=== PATIENT | male | born 1955 | race Caucasian/White ===

== ENCOUNTER 2017-02-12 10:03 | Inpatient (IN) | payer BC ==
[~2017-02-12] VITALS: Ht 167.6 cm; Wt 88.6 kg
[~2017-02-12 10:03] MED LIST: ASPIRIN 81 MG E81 MG PO; BYSTOLIC5 MG PO
[2017-02-12 10:45] LABS: BASOPHILS 0.2 % (0.0-2.0); EOSINOPHILS 1.3 % (0-7); HEMATOCRIT 48.7 % (42.0-54.0); HEMOGLOBIN 16.7 g/dL (13.5-17.5); IMMATURE GRANULOCYTES 0.8 % (0-5); LYMPHOCYTES 15.5 % (15-50); MCH 31.7 pg (26.0-34.0); MCHC 34.3 g/dL (31.0-37.0); MCV 92.6 fL (80.0-100.0); MEAN PLATELET VOLUME 9.8 fL (7.4-10.4); MONOCYTES 6.8 % (2-11); NEUTROPHILS 75.4 % (40-80); PLATELET COUNT 204 10x3/uL (130-400); RBC 5.26 10x6/uL (4.20-6.10); RDW 12.7 % (11.5-14.5); WBC 10.4 10x3/uL (4.8-10.8)
[2017-02-12 11:01] LABS: ALBUMIN 3.8 g/dL (3.4-5.0); ALKALINE PHOSPHATASE 62 U/L (46-116); ALT (SGPT) 33 U/L (10-68); BILIRUBIN - TOTAL 0.44 mg/dL (0.2-1.3); CALC OSMOLALITY 278 mosm/kg (275-300); CALCIUM 9.1 mg/dL (8.5-10.1); CHLORIDE - SERUM 105 mmol/L (98-107); CREATININE - SERUM 0.9 mg/dL (0.6-1.3); GLUCOSE 115 mg/dL (74-106); POTASSIUM - SERUM 4.7 mmol/L (3.5-5.1); SODIUM 138 mmol/L (136-145); UREA NITROGEN 18 mg/dL (7-18); eGFR NON AFRICAN AMERICAN > 90 mL/min (90-120)
[2017-02-12 11:20] LABS: PROTEIN - SERUM 7.5 g/dL (6.4-8.2); TROPONIN-I < 0.017 ng/mL (0.000-0.060)
--- NOTE | 2017-02-12 13:55 | NUR ---
PATIENT DENIES TAKING ANY OTHER MEDICATION BESIDES ASPRIN ON A REGULAR BASIS.
--- NOTE | 2017-02-12 14:00 | NUR ---
RECEIVED TO ROOM 2208 FROM RECOVERY ROOM VIA BED. RIGHT CHEST TUBE TO SUCTION. IV TO LEFT AC PATENT WITH NS INFUSING @ 100 CC/HR VIA PUMP. FAMILY AT BEDSIDE. CALL LIGHT IN REACH.
--- NOTE | 2017-02-12 15:42 | NUR ---
NEW BAG OF NS INITIATED. FAMILY IN ROOM. CALL LIGHT IN REACH.
--- NOTE | 2017-02-12 16:50 | NUR ---
STATES PAIN IS A 0 AT THIS TIME. CALL LIGHT IN REACH.
--- NOTE | 2017-02-12 18:13 | NUR ---
NO CHANGES IN INITIAL ASSESSMENT. CALL LIGHT IN REACH. REFUSES SCDs. CALL LIGHT IN REACH. WILL CONTINUE WITH PLAN OF CARE.
--- NOTE | 2017-02-12 19:00 | NUR ---
PATIENT IN BED VISITING WITH FAMILY. HOB 20 DEGREES. AAOX4. RR EVEN AND UNLABORED. O2 @ 2L VIA NC. 0 S/S OF DISTRESS. STATES PAIN IS A 5/10. IV TO LEFT AC PATENT WITH NO REDNESS OR SWELLING. CHEST TUBE TO RIGHT SIDE WITH DRESSING CDI. SRX2. BED LOW. CALL LIGHT WITHIN REACH.
[2017-02-12 19:31] VITALS: BP 147/81; Ht 167.6 cm; Wt 88.6 kg
[2017-02-12 20:00] VITALS: BP 116/63
--- NOTE | 2017-02-12 21:30 | NUR ---
ASSESSMENT COMPLETE. NIGHTTIME MEDS GIVEN. STATES PAIN IS DOWN TO A 2/10. DENIES NEEDS AT THIS TIME.
[2017-02-13] VITALS: BP 131/62
--- NOTE | 2017-02-13 00:11 | NUR ---
PATIENT SLEEPING WITH NO DISTRESS NOTED. AT BEDSIDE. CALL LIGHT WITHIN REACH.
--- NOTE | 2017-02-13 03:57 | NUR ---
BANDAGE AROUND CHEST TUBE LEAKING BLOOD. BANDAGE REMOVED. INSERTION SITE CLEANED WITH BETADINE. PETROLEUM GAUZE APPLIED. 4X4'S APPLIED AND PRESSURE TAPE APPLIED. WILL CONTINUE TO MONITOR.
[2017-02-13 04:00] VITALS: BP 118/62
[2017-02-13 04:46] LABS: BASOPHILS 0.2 % (0.0-2.0); EOSINOPHILS 2.7 % (0-7); HEMATOCRIT 44.2 % (42.0-54.0); HEMOGLOBIN 14.8 g/dL (13.5-17.5); IMMATURE GRANULOCYTES 0.6 % (0-5); MCH 31.4 pg (26.0-34.0); MCHC 33.5 g/dL (31.0-37.0); MCV 93.6 fL (80.0-100.0); MEAN PLATELET VOLUME 9.7 fL (7.4-10.4); MONOCYTES 8.6 % (2-11); NEUTROPHILS 62.9 % (40-80); PLATELET COUNT 180 10x3/uL (130-400); RBC 4.72 10x6/uL (4.20-6.10); RDW 12.6 % (11.5-14.5); WBC 8.7 10x3/uL (4.8-10.8)
[2017-02-13 04:58] LABS: CALC OSMOLALITY 277 mosm/kg (275-300); CARBON DIOXIDE 23.8 mmol/L (21.0-32.0); CHLORIDE - SERUM 105 mmol/L (98-107); CREATININE - SERUM 0.9 mg/dL (0.6-1.3); GLUCOSE 121 mg/dL (74-106); PHOSPHOROUS 2.8 mg/dL (2.5-4.9); POTASSIUM - SERUM 4.3 mmol/L (3.5-5.1); SODIUM 138 mmol/L (136-145); UREA NITROGEN 14 mg/dL (7-18); eGFR NON AFRICAN AMERICAN > 90 mL/min (90-120)
[2017-02-13 05:08] LABS: MAGNESIUM - SERUM 4.3 mg/dL (1.8-2.4)
--- NOTE | 2017-02-13 07:15 | NUR ---
REPORT RECEIVED FROM CLINICAL SERVICES DIRECTOR NURSE. CALL LIGHT IN REACH.
--- NOTE | 2017-02-13 07:52 | CN ---
PATIENT NAME:NIKKI CONTRERAS MEDICAL RECORD: [id number] : 53 LOCATION:D.MS Cho2208 ADMIT DATE: 02/12/17 ACCOUNT: [id number] CONSULTING PHYSICIAN: CLAIRE UNDERWOOD DO REFERRING PHYSICIAN: CLAIRE SANCHEZ MD DATE OF CONSULTATION: 02/12/2017 HISTORY OF PRESENT ILLNESS: A 61-year-old male consulted for medical management. The patient has a history of coronary artery disease, also history of nicotine dependence. Current medication is aspirin, had acute onset of chest pain early this morning. Daughter called EMS, he was brought in. Chest x-ray revealed a large right pneumothorax with almost complete collapse of the right lung. General surgery, Dr. Sanchez called. He was taken for chest tube placement and had a chest tube placed with good results. No present complaints. Consults as above. The patient relates a history of approximately 2 weeks prior significant fall landing on his right lateral chest wall, but did not seek medical treatment at that time. ALLERGIES: No known drug allergies. SOCIAL HISTORY: Everyday smoker, . REVIEW OF SYSTEMS: GENERAL: No acute change in weight or appetite. HEENT: No cephalgia, visual changes, tinnitus, epistaxis or dysphagia. CARDIOVASCULAR: Presented with right-sided chest pain, present resolution of symptoms. PULMONARY: As above, presently not short of breath. The patient also has a history of significant obstructive sleep apnea, is dependent on CPAP at night. GASTROINTESTINAL: Denies hematemesis, hematochezia or melena. GENITOURINARY: Denies dysuria. MUSCULOSKELETAL: No acute changes other than the acute right-sided chest pain with the right spontaneous pneumothorax. PHYSICAL EXAMINATION: VITAL SIGNS: Temperature 97.9, blood pressure 147/81, heart rate 88, respirations 20. GENERAL: Alert and oriented, no present distress. Family is present. HEENT: Normocephalic, atraumatic. Eyes: Pupils are equally round and reactive to light and accommodation. Extraocular muscles intact. Conjunctivae not injected. Ears: Canals patent, TMs are intact. Nose: Nares patent without drainage. Throat: No erythema, no exudates. NECK: Supple. No lymphadenopathy, no JVD. HEART: Regular rate and rhythm. No S3, S4, no rub. LUNGS: Presently clear, chest tube in place right lateral. ABDOMEN: Soft, nontender. Bowel sounds all 4 quadrants. EXTREMITIES: Present times 4, no edema. NEUROLOGIC: No focal deficits. SKIN: Warm and dry. No rash. ASSESSMENT AND PLAN: 1. Spontaneous pneumothorax, right chest wall, right lung with history of traumatic injury 2 weeks prior. We will obtain CT of the chest to evaluate for occult rib fracture. 2. Nicotine dependence. Counseled on smoking cessation, has failed outpatient CONSULT REPORT [id number] NIKKI CONTRERAS. 3. Coronary artery disease. EKG reviewed, no significant abnormalities. Presently, asymptomatic. 4. Pain management with chest tube placement. We will place on bowel regimen with Colace 100 mg q.h.s. p.r.n., milk of mag, supportive care. TRANSINT:[id number] Voice Confirmation ID: [id number] DOCUMENT ID: [id number] CLAIRE UNDERWOOD DO at 0752 CC: [id number] DICTATION DATE: 02/12/172004 RESISTOR TESTER: 02/13/17 0500 ADM IN [facility] [address] [place] [address]
[2017-02-13 08:15] VITALS: BP 122/64
--- NOTE | 2017-02-13 09:24 | NUR ---
IN CT SCAN AT THIS TIME.
--- NOTE | 2017-02-13 09:50 | NUR ---
BACK IN ROOM. ASSESSMENT COMPLETED. AM MEDS ADMINISTERED EXCEPT FOR PEPCID AND NICOTINE PATCH D/T REFUSAL. IN ROOM. STILL REFUSES SCDs. CALL LIGHT IN REACH. WILL CONTINUE WITH PLAN OF CARE.
--- NOTE | 2017-02-13 10:11 | NUR ---
Patient Name: NIKKI CONTRERAS Admission Status: ER Accout number: [id number] Admission Date: 02-12-2017 : 1955 Admission Diagnosis: Attending: ELIF Current LOS: 1 Anticipated DC Date: 02-17-2017 Planned Disposition: Home or Self Care Primary Insurance: [employer] O Discharge Planning Comments: CM MET WITH PATIENT AND SPOUSE (KAR) REGARDING D/C NEEDS AND PLANS. STATED SHE WILL DRIVE PATIENT HOME AT DISCHARGE. PATIENT STATED THEY HAVE 5 STEPS WITH RAILS TO ENTER HOME AND NO STAIRS INSIDE. PATIENT IS INDEPENDENT WITH HIS CARE AND HAS NO DME AT HOME. PATIENTS PCP IS DR. UNDERWOOD AND USES [facility]. PATIENT DENIES THE NEED FOR HOME HEALTH AT THIS TIME. CM WILL CONTINUE TO FOLLOW PATIENT WITH D/C NEEDS AND PLANS. PCP DR. UNDERWOOD [facility]- [phone] KAR - [phone] Gas Main Fitter Helper: Crystal Ram Is the patient Alert and Oriented? Yes 0 * How many steps to enter\exit or inside your home? 5 W/RAILS 0 * PCP DR. UNDERWOOD 0 * Pharmacy [facility] 0 * Preadmission Environment Home with Family 0 * ADLs Independent 0 * Equipment None 0 * List name and contact numbers for known caregivers / representatives who currently or will assist patient after discharge: KAR () [phone] 0 * Community resources currently utilized None 0 * Additional services required to return to the preadmission environment? Yes 0 * Can the patient safely return to the preadmission environment? Yes 0 * Has this patient been hospitalized within the prior 30 days at any hospital? No 0 Grand Total: 0
[2017-02-13 12:31] VITALS: BP 112/50
--- NOTE | 2017-02-13 14:06 | NUR ---
QUIET IN ROOM AT PRESENT DENIES ANY NEEDS AT THIS TIME.
--- NOTE | 2017-02-13 14:51 | NUR ---
AFTERNOON MEDS ADMINISTERED. FAMILY IN ROOM. CALL LIGHT IN REACH.
[2017-02-13 16:02] VITALS: BP 117/50
--- NOTE | 2017-02-13 16:05 | NUR ---
SPECIMEN CUP TAKEN IN ROOM FOR RESPIRATORY CULTTURE.
--- NOTE | 2017-02-13 18:50 | NUR ---
NO CHANGES IN INITIAL ASSESSMENT. STILL REFUSES PLEXI-PULSES. CALL LIGHT IN REACH. FAMILY IN ROOM. WILL CONTINUE WITH PLAN OF CARE.
--- NOTE | 2017-02-13 19:00 | NUR ---
PATIENT IN BED WATCHING TV. HOB 40 DEGREES. AAOX4. RR EVEN AND UNLABORED. O2 @ 2L VIA NC. 0 S/S OF DISTRESS. DENIES PAIN AT THIS TIME. IV TO LEFT AC PATENT WITH NO REDNESS OR SWELLING. CHEST TUBE TO RIGHT SIDE WITH DRESSING CDI. AT BEDSIDE. SRX2. BED LOW. CALL LIGHT WITHIN REACH.
[2017-02-13 20:00] VITALS: BP 118/51
--- NOTE | 2017-02-13 22:00 | NUR ---
ASSESSMENT COMPLETE. NIGHTTIME MEDS GIVEN. NO OTHER NEEDS AT THIS TIME.
[2017-02-14] VITALS: BP 107/52
--- NOTE | 2017-02-14 00:30 | NUR ---
DRESSING TO CHEST TUBE LEAKING. REDRESSED WITH PETROLEUM GAUZE, DRAIN GAUZE, AND PRESSURE TAPE. LINENS AND GOWN CHANGED.
--- NOTE | 2017-02-14 02:42 | NUR ---
PATIENT SLEEPING WITH NO DISTRESS NOTED. AT BEDSIDE. CALL LIGHT WITHIN REACH.
[2017-02-14 04:00] VITALS: BP 121/58
[2017-02-14 04:23] LABS: BASOPHILS 0.1 % (0.0-2.0); EOSINOPHILS 4.9 % (0-7); HEMATOCRIT 42.4 % (42.0-54.0); HEMOGLOBIN 14.1 g/dL (13.5-17.5); IMMATURE GRANULOCYTES 0.6 % (0-5); MCH 30.9 pg (26.0-34.0); MCHC 33.3 g/dL (31.0-37.0); MCV 92.8 fL (80.0-100.0); MEAN PLATELET VOLUME 9.4 fL (7.4-10.4); MONOCYTES 7.9 % (2-11); NEUTROPHILS 60.5 % (40-80); PLATELET COUNT 156 10x3/uL (130-400); RBC 4.57 10x6/uL (4.20-6.10); RDW 12.6 % (11.5-14.5); WBC 6.9 10x3/uL (4.8-10.8)
[2017-02-14 04:33] LABS: CALC OSMOLALITY 280 mosm/kg (275-300); CALCIUM 8.2 mg/dL (8.5-10.1); CARBON DIOXIDE 27.2 mmol/L (21.0-32.0); CHLORIDE - SERUM 108 mmol/L (98-107); CREATININE - SERUM 0.8 mg/dL (0.6-1.3); GLUCOSE 108 mg/dL (74-106); POTASSIUM - SERUM 4.5 mmol/L (3.5-5.1); SODIUM 141 mmol/L (136-145); eGFR NON AFRICAN AMERICAN > 90 mL/min (90-120)
[2017-02-14 04:34] LABS: MAGNESIUM - SERUM 1.8 mg/dL (1.8-2.4); UREA NITROGEN 9 mg/dL (7-18)
--- NOTE | 2017-02-14 07:15 | NUR ---
REPORT RECEIVED FROM FRANCHISE SALES MANAGER NURSE. CALL LIGHT IN REACH.
[2017-02-14 08:09] VITALS: BP 150/72
--- NOTE | 2017-02-14 09:22 | NUR ---
PT REFUSED TO COME TO THE RADIOLOGY DEPARTMENT FOR A 2V CXR, CHANGED ORDER TO A 1V PORTABLE CXR. RELAYED THIS MESSAGE TO HIS RN.
--- NOTE | 2017-02-14 09:52 | NUR ---
ASSESSMENT COMPLETED. STILL REFUSES PEPCID, NICOTINE PATCH, AND SCDs. CALL LIGHT IN REACH. IN ROOM. WILL CONTINUE WITH PLAN OF CARE.
--- NOTE | 2017-02-14 11:43 | NUR ---
PT. AOX4 RESP. DEMINISHED, RIGHT CHEST TUBE TO 20CM SUCTION PRESENT AND FUNCTIONING PROPERLY. 18 GAUGE IV TO LEFT AC. BANDAGE TO LEFT SHOULDER CLEAN DRY AND INTACT. PT. DENIES NEEDS AT THIS TIME
[2017-02-14 12:12] VITALS: BP 133/63
--- NOTE | 2017-02-14 13:20 | NUR ---
NO NEEDS VOICED AT THIS TIME. CALL LIGHT IN REACH.
[2017-02-14 15:48] VITALS: BP 155/75
--- NOTE | 2017-02-14 17:53 | NUR ---
SUSI SINGH PO. CALL LIGHT IN REACH.
--- NOTE | 2017-02-14 18:42 | NUR ---
NO CHANGES IN INIITAL ASSESSMENT. STILL REFUSES SCDs. CALL LIGHT IN REACH. WILL CONTINUE WITH PLAN OF CARE.
--- NOTE | 2017-02-14 19:00 | NUR ---
PATIENT SUPINE IN BED. HOB 40 DEGREES. AAOX4. RR EVEN AND UNLABORED. 0 S/S OF DISTRESS. DENIES PAIN AT THIS TIME. O2 @ 1L VIA NC. IV TO LEFT AC PATENT WITH NO REDNESS OR SWELLING. CHEST TUBE TO RIGHT SIDE, H20 SEAL WITH DRESSING CDI. AT BEDSIDE. SRX1. BED LOW. CALL LIGHT WITHIN REACH.
[2017-02-14 20:00] VITALS: BP 154/81
[2017-02-15] VITALS: BP 152/57
[2017-02-15 04:00] VITALS: BP 152/62
--- NOTE | 2017-02-15 07:40 | NUR ---
PATIENT RECEIVED SITTING UP IN CHAIR AT BEDSIDE VISITING WITH FAMILY. RESPIRATIONS EVEN AND UNLABORED. DENIES PAIN AND OTHER NEEDS. CALL LIGHT IN REACH.
[2017-02-15 08:30] VITALS: BP 148/84
--- NOTE | 2017-02-15 09:16 | NUR ---
PATIENT ALERT IN BED. NO SIGNS OF DISTRESS NOTED. SCHEDULED MEDICATION ADMINSITERED. SIDE RAILS UP X2. BED IN LOW POSITION. CALL LIGHT IN REACH. FAMILY PRESENT.
[2017-02-15 12:54] VITALS: BP 169/88
--- NOTE | 2017-02-15 14:20 | NUR ---
SITTING UP IN CHAIR VISITING WITH FAMILY. NO SIGNS OF DISTRESS NOTED. DENIES NEEDS. CALL LIGHT IN REACH.
[2017-02-15 17:00] VITALS: BP 165/81
--- NOTE | 2017-02-15 18:00 | NUR ---
SITTING UP IN CHAIR ALERT. NO SIGNS OF DISTRESS NOTED. FAMILY PRESENT. CALL LIGHT IN REACH. DENIES NEEDS.
[2017-02-15 20:44] VITALS: BP 136/64
--- NOTE | 2017-02-15 22:00 | NUR ---
ASSESSMENT COMPLETE. NIGHTTIME MEDS GIVEN. DRESSING CHANGED TO CHEST TUBE.
--- NOTE | 2017-02-16 06:00 | NUR ---
COVERED DRESSING SO PATIENT COULD SHOWER. PATIENT NOW AMBULATING IN HALLWAY AND STATES THAT HE FEELS BETTER.
--- NOTE | 2017-02-16 07:25 | NUR ---
PATIENT RECEIVED SITTING UP IN CHAIR ALERT. NO SIGNS OF DISTRESS NOTED. PRESENT. CALL LIGHT IN REACH.
[2017-02-16 07:57] VITALS: BP 158/78
--- NOTE | 2017-02-16 08:08 | NUR ---
PATIENT IN BED TALKING WITH . THEY ARE BOTH VERY UPSET AND AGITATED THAT THE CHEST TUBE IS STILL IN AND THE DRTrinidad DID NOT GIVE THEM A REASON TO WHY. TALKED WITH THEM TO CALM THEM DOWN. PATIENT STATED IV IS REALLY BOTHERING HIM AND ASKED IF I WOULD TAKE IT OUT. CATHETER REMOVED WITH TIP INTACT. NO OTHER NEEDS AT THIS TIME.
--- NOTE | 2017-02-16 08:25 | NUR ---
SITTING UP IN CHAIR ALERT. NO SIGNS OF DISTRESS NOTED. SCHEDULED MEDICATION ADMINISTERED. CALL LIGHT IN REACH. FAMILY PRESENT.
--- NOTE | 2017-02-16 09:25 | NUR ---
DRESSING TO CHEST TUBE CHANGED. NO REDNESS, INFLAMMATION OR DRAINAGE NOTED TO SITE. WELL TOLERATED. DENIES NEEDS.
--- NOTE | 2017-02-16 11:10 | NUR ---
PATIENT UP AMBULATING IN HALLWAY WITHOUT ASSIST. NO SIGNS OF DISTRESS NOTED.
[2017-02-16 12:12] VITALS: BP 134/69
--- NOTE | 2017-02-16 14:36 | NUR ---
SITTING UP IN CHAIR VISIITING WITH FAMILY. SCHEDULED MEDICATION ADMINISTERED. DENIES NEEDS. CALL LIGHT IN REACH.
[2017-02-16 15:38] VITALS: BP 141/70
--- NOTE | 2017-02-16 17:55 | NUR ---
SITTING UP IN CHAIR ALERT. NO SIGNS OF DISTRESS NOTED. FAMILY PRESENT. CALL JG MORAN. DENIES NEEDS.
--- NOTE | 2017-02-16 19:25 | NUR ---
RECIEVED SHIFT REPORT. PT IS SITTING UP IN CHAIR. ALERT AND ORIENTED AND ABLE TO VERBALIZE NEEDS. NO IV ACCESS AT THIS TIME. PT IS AMBULATORY BUT WAS INSTRUCTED TO CALL FOR ANY ASSISTANCE NEEDED. PT DENIES ANY PAIN AT THIS TIME. CHEST TUBE TO RIGHT SIDE INTACT. SITE C/D/I. PT REFUSES SCD'S AT THIS TIME. NO NEEDS ARE VERBALIZED AT THIS TIME. AT BEDSIDE. WILL CONTINUE TO MONITOR. SIDE RAILS ARE UP X 2. BED IS IN LOWEST POSITION. CALL LIGHT IS WITHIN REACH.
[2017-02-16 20:00] VITALS: BP 142/72
--- NOTE | 2017-02-16 21:20 | NUR ---
SHIFT ASSESSMENT COMPLETED. NIGHT MEDS GIVEN WITH NO PROBLEMS. NO NEEDS ARE VOICED. WILL MONITOR. SIDE RAILS X 2. BED LOW. CALL LIGHT IN REACH.
[2017-02-17] VITALS: BP 113/56
[2017-02-17 04:00] VITALS: BP 144/66
[2017-02-17 05:06] LABS: BASOPHILS 0.4 % (0.0-2.0); EOSINOPHILS 5.5 % (0-7); HEMATOCRIT 43.9 % (42.0-54.0); HEMOGLOBIN 14.8 g/dL (13.5-17.5); IMMATURE GRANULOCYTES 0.8 % (0-5); LYMPHOCYTES 20.5 % (15-50); MCH 31.2 pg (26.0-34.0); MCHC 33.7 g/dL (31.0-37.0); MCV 92.4 fL (80.0-100.0); MEAN PLATELET VOLUME 9.4 fL (7.4-10.4); MONOCYTES 9.6 % (2-11); NEUTROPHILS 63.2 % (40-80); RBC 4.75 10x6/uL (4.20-6.10); RDW 12.7 % (11.5-14.5); WBC 8.3 10x3/uL (4.8-10.8)
[2017-02-17 05:10] LABS: PLATELET COUNT 189 10x3/uL (130-400)
[2017-02-17 05:15] LABS: CALC OSMOLALITY 277 mosm/kg (275-300); CALCIUM 8.9 mg/dL (8.5-10.1); CARBON DIOXIDE 27.1 mmol/L (21.0-32.0); CHLORIDE - SERUM 105 mmol/L (98-107); GLUCOSE 116 mg/dL (74-106); POTASSIUM - SERUM 4.4 mmol/L (3.5-5.1); SODIUM 138 mmol/L (136-145); UREA NITROGEN 15 mg/dL (7-18); eGFR NON AFRICAN AMERICAN 80 mL/min (90-120)
--- NOTE | 2017-02-17 07:00 | NUR ---
PATIENT IS AWAKE, ALERT AND ORIENTED X'S 4. RESPIRATIONS ARE EVEN AND UNLABORED ON ROOM AIR. PATIENT IS SITTING UP IN THE CHAIR. NO SIGNS OF DISTRESS NOTED. PATIENT'S IS IN ROOM. PATIENT DENIES NEEDS.
[2017-02-17 08:07] VITALS: BP 160/85
[2017-02-17] MEDS ORDERED: LEVAQUIN500 MG PO (10:35)
--- NOTE | 2017-02-17 11:03 | NUR ---
DISCHARGE INSTRUCTIONS COMPLETED WITH PATIENT. PATIENT VERBALIZED UNDERSTANDING AND DENIES QUESTIONS. NO SIGNS OF DISTRESS NOTED. PATIENT IS AMBULATING IN THE ROOM. DRESSED. WAITING FOR A WHEELCHAIR.
--- NOTE | 2017-02-17 11:43 | NUR ---
02/17/2017 11:16 DCP: Discharge Planning Patient Name: NIKKI CONTRERAS Encounter No: [id number] : 1955 Primary Insurance: [employer] O Anticipated DC Date: 02-17-2017 Planned Disposition: Home or Self Care DCP follow-up note: DC order rec'd. No changes to plan. Case management will follow and assist as needed. Trish Mederos
--- NOTE | 2017-02-28 09:40 | OP ---
PATIENT NAME: NIKKI CONTRERAS MEDICAL RECORD: [id number] :[birth year] LOCATION:D.MS Cho2208 ADMISSION DATE:02/12/17 SURGEON: RONI SANCHEZ MD DATE OF OPERATION: 02/12/2017 PREOPERATIVE DIAGNOSIS: Spontaneous pneumothorax, right. POSTOPERATIVE DIAGNOSIS: Spontaneous pneumothorax, right. PROCEDURE: Placement of 28-Cameroonian right-sided chest tube. SURGEON: Roni Sanchez MD. CABLE SWAGER: None. BLOOD LOSS: Minimal. ANESTHESIA: Local with IV sedation. COMPLICATIONS: None. The risks, possible complications and alternatives to procedure were explained to the patient. He elects to proceed. The discussion was specifically included, but was not limited to, bleeding requiring emergency reoperation, infection and great vessel injury. OPERATIVE COURSE: The patient was conveyed to the operating room urgently on 02/12/2017. IV sedation was induced by anesthesia staff. The right chest was sterilely prepped and draped. Local anesthetic was used to infiltrate the skin and subcutaneous tissues of the right lateral chest, just anterior to the mid axillary line at approximately the level of the seventh intercostal space. A transverse incision was accomplished. I entered the right hemithorax over rib. I advanced a 28-Cameroonian chest tube. The chest tube was sutured in place with a horizontal mattress of 3-0 Vicryl suture. Another pursestring suture of 2-0 silk was applied around this initial suture. A sterile dressing was applied. The chest tube was then attached to a suction canister. The patient was then conveyed to post-anesthesia care unit where he was in stable condition. TRANSINT:[id number] Voice Confirmation ID: [id number] DOCUMENT ID: [id number] RONI SANCHEZ MD at 0940 CC: [id number] DICTATION DATE: 02/12/17 1346 CORE BLOWER: 02/12/17 2226 DIS IN 02/17/17 [place] [address]
--- NOTE | 2017-02-28 09:40 | HP ---
PATIENT: NIKKI CONTRERAS MEDICAL RECORD: [id number] ACCOUNT: [id number] LOCATION:D.MS Castrejon8 : [birth year] ADMISSION DATE: 02/12/17 HISTORY AND PHYSICAL EXAMINATION CHIEF COMPLAINT: Chest pain. HISTORY OF PRESENT ILLNESS: The patient presented to the Emergency Room with chest pain. Upon to presentation to the Emergency Room, it was felt that his chest pain was likely cardiac angina; however, chest x-ray revealed almost complete collapse of the right lung. He has never had a pneumothorax in the past. He does have a significant cardiac history. He is a smoker. I have advised him to quit smoking. HOME MEDICATIONS: Aspirin. ALLERGIES: No known drug allergies. SOCIAL HISTORY: He has got a 30-ggiz-rcvz history. PAST MEDICAL AND SURGICAL HISTORY: Coronary stents and coronary artery disease. REVIEW OF SYSTEMS: Negative for diabetes or thyroid problems. Negative for renal disease or hepatitis. IMAGING STUDIES: X-rays: I have personally reviewed the x-ray images. They revealed a complete collapse of the right lung. I do not think that the right hemithorax is under tension, however. PHYSICAL EXAMINATION: GENERAL: The patient does not appear acutely ill. He does not appear chronically ill. HEAD: He has a juan face. CARDIOVASCULAR: Regular rhythm. PULMONARY: Decreased breath sounds on the right side. EXTREMITIES: No peripheral cyanosis. 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 PSYCHIATRIC: Normal affect. NEUROLOGIC: Nonfocal. No lethargy. He answers questions appropriately. Moves all extremities well. BACK: No thoracic kyphosis. LYMPHATICS: No lymphangitic streaking of the exposed extremities. IMPRESSION: Spontaneous right pneumothorax. PLAN: Right-sided chest tube in the operating room. If we are unable to get his right lung to stick up to the chest wall, then he may need to undergo an additional intervention in 3-4 days. We discussed the pathophysiology of pneumothoraces as well as how they can be fixed and the different modalities that can be used to help repair a spontaneous pneumothorax. TRANSINT:[id number] Voice Confirmation ID: [id number] DOCUMENT ID: [id number] HISTORY AND PHYSICAL [id number] NIKKI CONTRERAS ROBERT MD at 0940 CC: LE LACY MD, CLAIRE UNDERWOOD DO and TERRI SHIELDS MD [id number] DICTATION DATE: 02/12/17 1223 MAGNETIC PROSPECTING OPERATOR: 02/12/17 1335 DIS IN 02/17/17 [facility] [address] [place] [address]
== END 2017-02-17 11:09 | disposition home or self-care (01) | DRG 201 ==
LOC: D.ER 10:03 → D.MS 13:38
PROVIDERS: Family Medicine; ADMIT Surgery
PROC: 0W9930Z Drainage of Right Pleural Cavity with Drainage Device, Percutaneous Approach (ICD-10-PCS; principal; 2017-02-12 11:30)
DX: S27.0XXA Traumatic pneumothorax, initial encounter (principal); W19.XXXA Unspecified fall, initial encounter; F17.219 Nicotine dependence, cigarettes, with unspecified nicotine-induced disorders; I25.10 Atherosclerotic heart disease of native coronary artery without angina pectoris; I10 Essential (primary) hypertension; E78.5 Hyperlipidemia, unspecified; G47.33 Obstructive sleep apnea (adult) (pediatric); J44.9 Chronic obstructive pulmonary disease, unspecified; J32.9 Chronic sinusitis, unspecified; N40.0 Benign prostatic hyperplasia without lower urinary tract symptoms; Z95.5 Presence of coronary angioplasty implant and graft

== ENCOUNTER → 2017-03-21 07:24 | Outpatient (CLI) | payer BC ==
[2017-02-12 19:31] VITALS: BMI 31.5
[~2017-03-21 07:24] MED LIST changes: +LEVAQUIN500 MG PO
== END | disposition home or self-care (01) ==
LOC: D.RAD 07:24
DX: J93.9 Pneumothorax, unspecified (principal)

== ENCOUNTER 2017-10-06 11:12 | Observation (INO) | payer BC ==
[~2017-10-06] VITALS: Ht 170.2 cm; Wt 91.0 kg
[2017-10-06] MEDS ORDERED: FLOMAX0.4 MG PO (13:02)
[2017-10-06 13:27] LABS: BASOPHILS 0.3 % (0-2); EOSINOPHILS 1.8 % (0-7); HEMATOCRIT 42.3 % (42.0-54.0); HEMOGLOBIN 14.4 g/dL (13.5-17.5); IMMATURE GRANULOCYTES 1.2 % (0-5); LYMPHOCYTES 29.9 % (15-50); MCH 31.2 pg (26.0-34.0); MCV 91.6 fL (80.0-100.0); MEAN PLATELET VOLUME 9.3 fL (7.4-10.4); MONOCYTES 8.6 % (2-11); NEUTROPHILS 58.2 % (40-80); PLATELET COUNT 181 10x3/uL (130-400); RBC 4.62 10x6/uL (4.20-6.10); RDW 12.6 % (11.5-14.5)
[2017-10-06 13:50] LABS: ALBUMIN 3.5 g/dL (3.4-5.0); ALKALINE PHOSPHATASE 57 U/L (46-116); ALT (SGPT) 48 U/L (10-68); CALC OSMOLALITY 278 mosm/kg (275-300); CALCIUM 8.7 mg/dL (8.5-10.1); CARBON DIOXIDE 23.3 mmol/L (21.0-32.0); CHLORIDE - SERUM 105 mmol/L (98-107); CKMB 0.5 U/L (0.0-3.6); CREATINE KINASE 71 UL (21-232); CREATININE - SERUM 0.9 mg/dL (0.6-1.3); GLUCOSE 104 mg/dL (74-106); SODIUM 140 mmol/L (136-145); TROPONIN-I < 0.017 ng/mL (0.000-0.060); UREA NITROGEN 13 mg/dL (7-18); eGFR NON AFRICAN AMERICAN > 90 mL/min (90-120)
[2017-10-06 15:02] VITALS: BP 145/76; Ht 170.2 cm; Wt 91.0 kg
--- NOTE | 2017-10-06 15:06 | NUR ---
EARLIER PT ARRIVED FROM OFFICE WITH CO CHEST PAIN AND SOB. AURE BOTH AT PRESENT. MONIOTR ON- NSR @ RATE OF 56. EKG DONE ORDERED. EKG IS NORMAL. IV STARTED IN R WRIST WITH 20GA 1 IN. SL. WILL CONTINUE TO MONIOTR.
[2017-10-06 16:00] VITALS: BP 141/64
[2017-10-06 19:29] LABS: CREATINE KINASE 68 UL (21-232)
[2017-10-06 19:34] LABS: TROPONIN-I < 0.017 ng/mL (0.000-0.060)
--- NOTE | 2017-10-06 19:35 | NUR ---
D-DIMER 0.28. ORDER RECEIVED BY DR SCHULTZ TO DO CTA IF D-DIMER ELEVATED. NO NEED FOR CTA PER D-DIMER RESULTS. WILL CONT TO MONITOR.
[2017-10-06 20:59] VITALS: BP 119/64
[2017-10-07 00:30] VITALS: BP 100/58
[2017-10-07 01:23] LABS: CKMB 0.6 U/L (0.0-3.6); CREATINE KINASE 64 UL (21-232)
[2017-10-07 01:25] LABS: TROPONIN-I < 0.017 ng/mL (0.000-0.060)
[2017-10-07 06:03] VITALS: BP 119/65
--- NOTE | 2017-10-07 06:16 | NUR ---
ASSESSMENT DONE. AT SIDE. DENIES NEEDS.
[2017-10-07 08:07] VITALS: BP 140/70
--- NOTE | 2017-10-07 08:57 | NUR ---
RESTS IN BED WITHOUT NEEDS VOICED. AT BS. CALL LIGHT IN REACH. WILL CONT. PLAN OF CARE.
[2017-10-07 13:38] VITALS: BP 123/67
[2017-10-07 16:52] VITALS: BP 130/69
--- NOTE | 2017-10-07 17:25 | NUR ---
WITHOUT CHANGES OR DISTRESS NOTED AT THIS TIME. DENIES NEEDS.
[2017-10-07 21:53] VITALS: BP 101/48
--- NOTE | 2017-10-07 22:35 | NUR ---
PT LYING IN BED, EYES CLOSED, RESPIRATIONS EVEN AND UNLABORED, FAMILY AT BEDSIDE. PT IS EASILY ROUSABLE TO VERBAL SITMULI AND IS ALERT AND ORIENTED WHEN AWAKE. PT STATES HE SLEEPS WITH A C-PAP AT HOME, AND HAS ASKED FOR O2 VIA NC WHILE IN HERE, HE STATES HE [place]IVES [address], AND DID NOT WANT TO ASK HIS SPOUSE TO DRIVE ALL THE WAY TO GET IT. I DID PLACE PT ON O2 VIA NC @ 2LPM, AND ADVISED PT TO TAKE IT OFF IF HE CANNOT TOLERATE IT AND TO LET ME KNOW IMMEDIATELY. PT VERBALLY AGREED TO DO SO. NO OTHER NEEDS AT THIS TIME. PT IS SL FROM DAYSHIFT, IS EATING AND DRINKING WITHOUT ANY DIFFICULTY, AND STATES HIS BLE EDEMA IS IMPROVED. WILL CONTINUE TO HOLD THE IV FLUIDS AND CONTINUE TO MONITOR CLOSELY. BED LOW, CALL LIGHT IN REACH, SIDE RAILS X 2, HOB 10-15 DEGREES.
[2017-10-08 02:37] VITALS: BP 92/52
[2017-10-08 03:49] LABS: BASOPHILS 0.5 % (0-2); EOSINOPHILS 3.6 % (0-7); HEMATOCRIT 43.6 % (42.0-54.0); HEMOGLOBIN 14.4 g/dL (13.5-17.5); IMMATURE GRANULOCYTES 0.8 % (0-5); LYMPHOCYTES 42.7 % (15-50); MCH 30.7 pg (26.0-34.0); MEAN PLATELET VOLUME 9.3 fL (7.4-10.4); MONOCYTES 7.2 % (2-11); NEUTROPHILS 45.2 % (40-80); PLATELET COUNT 194 10x3/uL (130-400); RBC 4.69 10x6/uL (4.20-6.10); RDW 12.7 % (11.5-14.5); WBC 6.1 10x3/uL (4.8-10.8)
[2017-10-08 04:30] LABS: CALC OSMOLALITY 283 mosm/kg (275-300); CALCIUM 8.7 mg/dL (8.5-10.1); CARBON DIOXIDE 25.7 mmol/L (21.0-32.0); CHLORIDE - SERUM 109 mmol/L (98-107); CKMB 0.2 U/L (0.0-3.6); CREATININE - SERUM 1.1 mg/dL (0.6-1.3); GLUCOSE 107 mg/dL (74-106); SODIUM 142 mmol/L (136-145); TROPONIN-I < 0.017 ng/mL (0.000-0.060); UREA NITROGEN 15 mg/dL (7-18); eGFR NON AFRICAN AMERICAN 72 mL/min (90-120)
[2017-10-08 04:32] LABS: POTASSIUM - SERUM 4.7 mmol/L (3.5-5.1)
[2017-10-08 05:16] VITALS: BP 113/65
--- NOTE | 2017-10-08 07:48 | NUR ---
ASSESSMENT DONE. AT SIDE. DENIES NEEDS.
[2017-10-08 08:00] VITALS: BP 101/74
--- NOTE | 2017-10-08 08:30 | NUR ---
UP TO STEPHEN. IV PATENT. AT BS. AURE NEEDS AT THIS TIME. WILL MONITOR.
[2017-10-08 11:51] VITALS: BP 117/63
[2017-10-08] MEDS ORDERED: PROVENTIL HFA6.7 GM INH (16:57)
[2017-10-08] MEDS ORDERED: BEVESPI POINH (16:58)
[2017-10-08 17:26] VITALS: BP 113/51
--- NOTE | 2017-10-08 17:27 | NUR ---
WITHOUT CHANGES OR DISTRESS NOTED AT THIS TIME. AT SIDE.
--- NOTE | 2017-10-08 18:42 | NUR ---
DC GIVEN TO PT
--- NOTE | 2017-10-08 18:42 | NUR ---
DC HOME PER PERSONAL CAR
--- NOTE | 2017-10-17 14:14 | EC ---
PATIENT:NIKKI CONTRERAS DATE OF SERVICE: 10/06/17 SEX: M MEDICAL RECORD: [id number] DATE OF : [birth year] LOCATION:D.M2 D.212 AGE OF PATIENT: 62 ADMISSION DATE: 10/06/17 REFERRING PHYSICIAN: INTERPRETING PHYSICIAN: TERRI PHILLIPS MD ECHOCARDIOGRAM REPORT ECHO CHARGES 4 ECHO COMPLETE CLINICAL DIAGNOSIS: SOB HX CAD/STENT ECHOCARDIOGRAPHIC MEASUREMENTS (adult normal given) AC root (d.<3.7cm) 4.2 cm LV Septum d (<1.2 cm> 1.6 cm Valve Excursion 2.0 cm LV Septum (systole) 1.7 cm Left Atria (s.<4.0cm> 2.7 cm LVPW d(<1.2cm) 1.5 cm RV (d.<2.3cm) 5.3 cm LVPW (sytole) 1.6 cm LV diastole(<5.6CM) 4.4 cm MV E-F(>70mm/sec) cm LV systole 3.1 cm LVOT Diameter 1.9 cm MV exc.(>10mm) 1.3 cm Est.ejection fraction (50-75%) % Pericardial Effusion N DOPPLER: LVIT cm/sec A 81.0 cm/sec E 67.0 cm/sec LA cm/sec RVSP 19 mmHg LVOT 107 cm/sec AOP1/2T m/s Asc. Ao 147 cm/sec RVOT cm/sec RA cm/sec PA cm/sec AV Gradient Peak 8.69 mmHg AV Mean 4.56 mmHg AV Area 1.6 cm MV Gradient Peak 4.89 mmHg MV Mean 1.52 mmHg MV Area cm COMMENTS: Accounts Receivable Specialist: Becca MARSH Pasteurizing Machine Operator: 1 Dr. Phillips TAPE# PACS DATE OF SERVICE: 10/07/2017 Echocardiogram FINDINGS: 1. Left ventricular chamber size is within normal limits. Left ventricular systolic function is normal. Overall ejection fraction estimated at 60%. 2. Left atrium is within normal limits at 2.7 cm. Right atrium and right ventricular chamber sizes are mildly dilated. 3. Valvular structures have normal structure and motion. ECHOCARDIOGRAM REPORT [id number] NIKKI CONTRERAS N 4. Doppler interrogation only reveals trace tricuspid regurgitation that is not hemodynamically significant and pulmonary systolic pressure is normal estimated at 19 mmHg. 5. No evidence of pericardial effusion or left ventricular thrombus. TRANSINT:[id number] Voice Confirmation ID: [id number] DOCUMENT ID: [id number] 10/13/2017 Edited to correct date of service, dmrachel. TERRI PHILLIPS MD at 1414 CC: TIFFANIE SCHULTZ DO [id number] DICTATION DATE: 10/08/17 1040 ADOBE LAYER: 10/08/17 1157 DIS IN 10/08/17 [place] [id number] [place] [id number]
--- NOTE | 2017-10-17 14:14 | CN ---
PATIENT NAME:NIKKI CONTRERAS MEDICAL RECORD: [id number] : 53 LOCATION:[facility] D.2120 ADMIT DATE: 10/06/17 ACCOUNT: [id number] CONSULTING PHYSICIAN: TERRI SHIELDS MD REFERRING PHYSICIAN: TIFFANIE SCHULTZ DO DATE OF CONSULTATION: 10/06/2017 DIAGNOSES: 1. Shortness of breath. 2. Smoking history. HISTORY: Mr. Contreras presents with increasing shortness of breath for 2-3 weeks. No chest pain. No chest discomfort. Normal EKG. Normal troponin. He has a history of normal cardiac catheterization approximately 2-3 years ago. REVIEW OF SYSTEMS: The patient reports easy bruising but reports no swollen glands. The patient reports no fever, no night sweats, no significant weight gain, no significant weight loss. No significant exercise tolerance. The patient reports no dry eyes, no irritation, no vision change. The patient reports no difficulty hearing and no ear pain. The patient reports no frequent nose bleeds or nose and sinus problems. The patient reports on arm pain on exertion. No shortness of breath while lying down. No history of heart murmur. The patient reports no cough, no wheezing or coughing up blood. The patient reports no abdominal pain, no vomiting. Normal appetite. No diarrhea and not vomiting blood. No nausea and no constipation. The patient reports no incontinence. No difficulty urinating. No hematuria. No increased frequency. The patient reports no muscle aches. No weakness, no arthralgias, no back pain. No swelling of the extremities. The patient reports no abnormal mole, no jaundice, no rashes. Reports no loss of consciousness. No weakness and no numbness. No seizures, dizziness, or headaches. The patient reports no depression, no sleep disturbance, feeling safe in a relationship and no alcohol abuse. The patient reports on fatigue. Reports no runny nose or sinus pressure. No itching, no hives, and no frequent sneezing. PHYSICAL EXAMINATION: GENERAL APPEARANCE: Well-nourished, well-developed, appears stated age. Level of distress, comfortable. PSYCHIATRIC: Mental status, alert, normal affect. Orientation, oriented to time, place and person. EYES: Lids and conjunctiva, noninjected. No discharge, no pallor. ENT: Lips, teeth, gums, normal dentition. Oropharynx, no cyanosis, no pallor. NECK: Carotid arteries, bilateral normal upstroke, no bruits, no thrills. JUGULAR VEINS: No jugular venous pressure or distention. CERVICAL LYMPH NODES: Nontender, nonenlarged. THYROID: Not enlarged. Nontender. No nodules. LUNGS: Respiratory effort, unlabored. CHEST: Normal curvature. No thoracic deformity. No chest wall tenderness. Percussion, resonant. Auscultation, clear. No wheezes, no rales, no rhonchi. CARDIOVASCULAR: Precordial exam, nondisplaced. No heaves or pericardial thrills. Rate and rhythm, regular. Heart sounds, normal S1, normal S2. No S3, no gallop, no rub. Systolic murmur, not heard. Diastolic murmur, not heard. EXTREMITIES: No cyanosis, no edema. Peripheral pulses, full and equal in all extremities, except as noted. No bruits appreciated. ABDOMEN: Soft, nondistended. Normal aorta. No bruit. Nontender. No masses. Liver, nontender, no hepatomegaly. Spleen, nontender, no splenomegaly. CONSULT REPORT [id number] NIKKI CONTRERAS MUSCULOSKELETAL: No joint tenderness. No joint swelling. No erythema. NEUROLOGICAL: Normal gait, normal strength, normal tone. SKIN: Warm and dry. He does have a smoking history. He has a history of pneumothorax. Doubt that this is hemodynamically significant coronary artery disease. We will get an echocardiogram. If the echocardiogram is normal, no other cardiac workup or treatment is necessary. TRANSINT:[id number] Voice Confirmation ID: [id number] DOCUMENT ID: [id number] TERRI SHIELDS MD at 1414 CC: [id number] DICTATION DATE: 10/06/17 1525 RN EMBEDDED: 10/06/17 1547 DIS IN 10/08/17 [facility] [address] [place] [address]
== END 2017-10-08 18:42 | disposition home or self-care (01) ==
LOC: D.M2 11:12 → OBSVTIME 11:13 → D.M2 10-08 18:42
PROVIDERS: Family Medicine; ADMIT Family Medicine
DX: J43.9 Emphysema, unspecified (principal); E78.5 Hyperlipidemia, unspecified; I10 Essential (primary) hypertension; Z87.891 Personal history of nicotine dependence

== ENCOUNTER → 2017-11-28 10:30 | Outpatient (CLI) | payer BC ==
[2017-10-06 15:02] VITALS: BMI 33.7
[~2017-11-28 10:30] MED LIST changes: +BEVESPI POINH; +FLOMAX0.4 MG PO; +PROVENTIL HFA6.7 GM INH
== END | disposition home or self-care (01) ==
LOC: D.RT 10:30
DX: J44.9 Chronic obstructive pulmonary disease, unspecified (principal)